=== PATIENT | male | born 1995 ===

== ENCOUNTER 2019-04-13 08:56 | Emergency (ER) | payer OTHER ==
[~2019-04-13] VITALS: Ht 177.8 cm; Wt 90.7 kg
== END 2019-04-13 16:03 | disposition home or self-care (01) ==
LOC: ER 08:56
DX: K29.70 Gastritis, unspecified, without bleeding (principal)

== ENCOUNTER 2020-03-26 14:45 | Emergency (ER) | payer OTHER ==
[~2020-03-26] VITALS: Ht 177.8 cm; Wt 86.2 kg
== END 2020-03-26 19:07 | disposition home or self-care (01) ==
LOC: ER 14:45
DX: J03.80 Acute tonsillitis due to other specified organisms (principal)

== ENCOUNTER 2020-05-31 16:06 | Emergency (ER) | payer OTHER ==
[~2020-05-31] VITALS: Ht 180.3 cm; Wt 90.7 kg
== END 2020-05-31 17:28 | disposition home or self-care (01) ==
LOC: ER 16:06 → EDBD 16:20 → ER 17:28
DX: J35.01 Chronic tonsillitis (principal); Z03.818 Encounter for observation for suspected exposure to other biological agents ruled out

== ENCOUNTER 2020-06-04 08:40 | Emergency (ER) | payer OTHER ==
[~2020-06-04] VITALS: Ht 180.3 cm; Wt 90.7 kg
[2020-06-04] MEDS ORDERED: CLEOCIN HCL300 MG PO (12:07)
== END 2020-06-04 12:32 | disposition home or self-care (01) ==
LOC: ER 08:40
DX: J03.90 Acute tonsillitis, unspecified (principal); Z03.818 Encounter for observation for suspected exposure to other biological agents ruled out